=== PATIENT | female | born 1995 | race African-American/Black ===

== ENCOUNTER 2021-09-16 20:49 | Emergency (ER) | payer SELFPAY ==
[~2021-09-16] VITALS: Ht 160 cm; Wt 59.0 kg
[2021-09-16 20:55] VITALS: BP 146/90
== END 2021-09-16 21:07 | disposition left against medical advice (07) ==
LOC: ER 20:49
DX: Z53.21 Procedure and treatment not carried out due to patient leaving prior to being seen by health care provider (principal)